=== PATIENT | male | born 1935 | race Caucasian/White ===

== ENCOUNTER 2017-11-13 19:27 | Emergency (ER) | payer MEDICARE ==
[~2017-11-13] VITALS: Ht 182.9 cm; Wt 119.7 kg
--- OUTSIDE RECORDS SUMMARY | 2017-11-13 19:30 | XMS REPORT ---
[facility] Address Unknown Phone Unavailable Care Team Providers Care Account Manager Education Name Role Phone REDD PARKER Unavailable Unavailable Problems This patient has no known problems. Allergies, Adverse Reactions, Alerts This patient has no known allergies or adverse reactions. Medications This patient has no known medications. Results Test Description Test Time Test Comments Text Results Atomic Results Result Comments KNEE LEFT THREE VIEWS [place] [address] Patient Name: KENJI BAILON MR #: [id number] : 1935 Age/Sex: 82/M Req # : [id number] Adm Physician: Ordered by: REDD PARKER MD Report #: [id number] Location: [place] Room/Bed: Procedure: [id number] DX/KNEE LEFT THREE VIEWS Exam Date: Exam Time: REPORT STATUS: Signed PROCEDURE: KNEE LEFT THREE VIEWS COMPARISON : None. INDICATIONS: FALL, LEFT KNEE INJURY FINDINGS: There are no fractures, dislocations, lytic or blastic lesions. Chronic appearing periosteal irregularity/thickening of the proximal lateral tibial shaft. No suprapatellar joint effusion. Multiple surgical clips overlie the medial knee and upper leg. Vascular consolidations. Faint meniscal calcifications. CONCLUSION: No acute fracture or dislocation of the left knee. Dictated by: Esau Neumann M.D. on 11/13/2017 at 18:55 Electronically approved by: Esau Neumann M.D. on 11/13/2017 at 18:55 Dictated By: ESAU NEUMANN MD 54 Transcribed By: LEONELA on 11/13/171854 COPY TO: REDD PARKER MD CT CERVICAL SPINE WO [place] [address] Patient Name: KENJI BAILON MR #: [id number] : 1935 Age/Sex: 82/M Req # : [id number] Adm Physician: Ordered by: REDD PARKER MD Report #: [id number] Location: CT Room/Bed: Procedure: [id number] CT/CT CERVICAL SPINE WO Exam Date: 11/13/17 Exam Time: 1800 REPORT STATUS: Signed Examination: CT CERVICAL SPINE WITHOUT CONTRAST HISTORY:Neck pain. Fall. COMPARISON:None. TECHNIQUE: Multidetector helical axial images were obtained without contrast from the foramen magnum to T1. Coronal and sagittal reformatted images were done. Bone and soft tissue windows were evaluated. FINDINGS: Alignment: Normal alignment and lordosis. Vertebrae: Normal height and density. No acute fracture, infection or neoplasm. Disc space heights: Normal height. Caliber of spinal canal: Developmentally normal. Posterior fossa and craniocervical junction: Foramen magnum patent. No Chiari 1 malformation. Soft tissues: No abnormality. 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 Moderate right facet arthropathy from C2 through C5. Diffuse disc bulges from C3-C4 through C7-T1 without canal stenosis. Additional findings: None. IMPRESSION: No acute abnormalities. Signed by: Dr. Donna Lopes M.D. on 11/13/2017 6:58 PM Dictated By: DONNA ESPINOZA MD 57 Transcribed By: ABHIJIT on 11/13/171857 COPY TO: REDD PARKER MD CT BRAIN WO [place] [address] Patient Name: KENJI BAILON MR #: [id number] : 1935 Age/Sex: 82/M Req #: [id number] Adm Physician: Ordered by: REDD PARKER MD Report #: [id number] Location: CT Room/Bed: Procedure: [id number] CT/CT BRAIN WO Exam Date: 11/13/17 Exam Time: 1800 REPORT STATUS: Signed Examination: CT BRAIN WITHOUT CONTRAST History: Fall; loss of consciousness. Comparison studies:None Technique: Axial images were obtained from the skull base to the vertex. Coronal and sagittal images reconstructed from the axial data. Intravenous contrast: None Findings: Scalp: No abnormalities. Bones: No fractures, blastic or lytic lesions. Brain sulci: Moderate volume loss for age. Ventricles: No hydrocephalus. Extra-axial space: No abnormalities. Parenchyma: There are mild confluent areas of hypoattenuation in the periventricular and subcortical white matter, nonspecific There is an area of hyperdensity in the left inferior frontal gyrus/frontal operculum, measuring 1.1 cm, concerning for a contusion. No masses or acute or chronic cortical based vascular insults. Sellar/suprasellar region: No abnormalities. Craniocervical junction: Patent foramen magnum. No Chiari one malformation. Incidental findings: None. Impression: 1. Findings as described above are concerning for a 1.1cm contusion in the left inferior frontal gyrus/frontal operculum. 2. Moderate volume loss. 3. Mild chronic microvascular ischemic change. Dr. Donna Lopes discussed findings with Dr. Curtis on 11/13/2017 at 1854 hours. Signed by: Dr. Donna Lopes M.D. on 11/13/2017 6:56 PM Dictated By: DONNA ESPINOZA MD 55 Transcribed By: ABHIJIT on 11/13/171855 COPY TO: REDD PARKER MD
[2017-11-13 20:15] LABS: BASOPHILS % 0.2 % (0.0-1.0); EOSINOPHILS # (AUTO) 0.2 (0.0-0.4); EOSINOPHILS % 2.2 % (0.0-6.0); HEMOGLOBIN 14.5 g/dL (14.0-18.0); LYMPHOCYTES % 11.1 % (18.0-39.1); MEAN CORPUSCULAR HEMOGLOBIN 29.2 pg (28-32); MEAN CORPUSCULAR VOLUME 88.7 fL (81-99); MONOCYTES # (AUTO) 0.8 (0.2-0.8); MONOCYTES % 8.4 % (4.4-11.3); NEUTROPHILS # (AUTO) 7.2 (2.1-6.9); NEUTROPHILS % 77.2 % (38.7-80.0); PLATELET COUNT 140 x10e3/uL (140-360); RED BLOOD COUNT 4.96 x10e6/uL (4.3-5.7)
[2017-11-13 20:23] LABS: INR 1.17
[2017-11-13 20:24] LABS: PARTIAL THROMBOPLASTIN TIME 28.7 seconds (23.8-35.5)
[2017-11-13 20:33] LABS: ALBUMIN 3.8 g/dL (3.5-5.0); ANION GAP 17.9 mmol/L (8-16); CALCIUM 9.3 mg/dL (8.4-10.2); CREATININE, SERUM 1.66 mg/dL (0.72-1.25)
[2017-11-13 20:34] LABS: POTASSIUM 3.9 mmol/L (3.5-5.1)
[2017-11-13 20:42] LABS: CREATINE KINASE MB 6.6 ng/mL (0-5.0)
[2017-11-13 21:47] VITALS: BP 123/79
== END 2017-11-14 00:03 | disposition short-term general hospital (02) ==
LOC: ER 19:27
DX: R55 Syncope and collapse (principal); S00.83XA Contusion of other part of head, initial encounter; S81.012A Laceration without foreign body, left knee, initial encounter; W01.198A Fall on same level from slipping, tripping and stumbling with subsequent striking against other object, initial encounter; Y92.531 Health care provider office as the place of occurrence of the external cause; I10 Essential (primary) hypertension; E11.9 Type 2 diabetes mellitus without complications; I48.2 Chronic atrial fibrillation; E78.5 Hyperlipidemia, unspecified; I25.2 Old myocardial infarction
CPT/HCPCS: 36415; 80053; 82550; 82553; 84484; 85025; 85610; 85730; 93005; 99284

== ENCOUNTER → 2017-11-13 | Outpatient (CLI) | payer MEDICARE ==
[~2017-11-13] MED LIST: ALPRAZOLAM0.5 MG PO; AMIODARONE HCL200 MG PO; ASPIR 8181 MG PO; ATORVASTATIN CA20 MG PO; CLOPIDOGREL75 MG PO; FAMOTIDINE20 MG PO; FUROSEMIDE40 MG PO; LANTUS100 UNITS/ SQ; LISINOPRIL2.5 MG PO; MAGNESIUM OXID400 MG PO; METFORMIN HCL500 MG PO; METOPROLOL TART50 MG PO; POTASSIUM CHLO20 ME1 PO; TYLENOL WITH C1 EACH PO
--- NOTE | 2017-11-13 18:52 | Diagnostic Imaging Report ---
PROCEDURE:KNEE LEFT THREE VIEWS COMPARISON:None. INDICATIONS:FALL, LEFT KNEE INJURY FINDINGS: There are no fractures, dislocations, lytic or blastic lesions. Chronic appearing periosteal irregularity/thickening of the proximal lateral tibial shaft. No suprapatellar joint effusion. Multiple surgical clips overlie the medial knee and upper leg. Vascular consolidations. Faint meniscal calcifications. CONCLUSION: No acute fracture or dislocation of the left knee. Dictated by: Esau Looney M.D. on 11/13/2017 at 18:55 Electronically approved by: Esau Looney M.D. on 11/13/2017 at 18:55
--- NOTE | 2017-11-13 19:00 | Diagnostic Imaging Report ---
Examination: CT BRAIN WITHOUT CONTRAST History:Fall; loss of consciousness. Comparison studies:None Technique: Axial images were obtained from the skull base to the vertex. Coronal and sagittal images reconstructed from the axial data. Intravenous contrast: None Findings: Scalp: No abnormalities. Bones: No fractures, blastic or lytic lesions. Brain sulci: Moderate volume loss for age. Ventricles: No hydrocephalus. Extra-axial space: No abnormalities. Parenchyma: There are mild confluent areas of hypoattenuation in the periventricular and subcortical white matter, nonspecific There is an area of hyperdensity in the left inferior frontal gyrus/frontal operculum, measuring 1.1 cm, concerning for a contusion. No masses or acute or chronic cortical based vascular insults. Sellar/suprasellar region: No abnormalities. Craniocervical junction: Patent foramen magnum. No Chiari one malformation. Incidental findings: None. Impression: 1. Findings as described above are concerning for a 1.1cm contusion in the left inferior frontal gyrus/frontal operculum. 2. Moderate volume loss. 3. Mild chronic microvascular ischemic change. Dr. Donna Lopes discussed findings with Dr. Curtis on 11/13/2017 at 1854 hours. Signed by: Dr. Donna Lopes M.D. on 11/13/2017 6:56 PM
--- NOTE | 2017-11-13 19:02 | Diagnostic Imaging Report ---
Examination: CT CERVICAL SPINE WITHOUT CONTRAST HISTORY:Neck pain. Fall. COMPARISON:None. TECHNIQUE: Multidetector helical axial images were obtained without contrast from the foramen magnum to T1. Coronal and sagittal reformatted images were done. Bone and soft tissue windows were evaluated. FINDINGS: Alignment:Normal alignment and lordosis. Vertebrae: Normal height and density. No acute fracture, infection or neoplasm. Disc space heights: Normal height. Caliber of spinal canal: Developmentally normal. Posterior fossa and craniocervical junction: Foramen magnum patent. No Chiari 1 malformation. Soft tissues: No abnormality. 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 Moderate right facet arthropathy from C2 through C5. Diffuse disc bulges from C3-C4 through C7-T1 without canal stenosis. Additional findings: None. IMPRESSION: No acute abnormalities. Signed by: Dr. Donna Lopes M.D. on 11/13/2017 6:58 PM
== END ==
LOC: CT 17:12
PROVIDERS: ATTEND Internal Medicine
DX: S19.9XXA Unspecified injury of neck, initial encounter (principal); S06.0X0A Concussion without loss of consciousness, initial encounter; S81.022A Laceration with foreign body, left knee, initial encounter
CPT/HCPCS: 70450; 72125